=== PATIENT | male | born 1980 | race Caucasian/White ===

== ENCOUNTER 2022-04-25 20:10 | Emergency (ER) | payer BC, MEDICAID ==
[2022-04-25] MEDS ORDERED: Sodium Chloride 0.9% 1,000 ML IV ONE (21:07)
== END 2022-04-25 23:18 ==
LOC: JD.ED 20:10
DX: F10.229 Alcohol dependence with intoxication, unspecified (principal); Y90.1 Blood alcohol level of 20-39 mg/100 ml
CPT/HCPCS: 36415; 80307; 96360; 99283; J7030

== ENCOUNTER 2022-06-20 10:00 | Emergency (ER) | payer MEDICAID, BC | END 2022-06-20 12:02 | LOC: JD.ED 10:00 | DX: F10.10 Alcohol abuse, uncomplicated (principal); I10 Essential (primary) hypertension; Y90.0 Blood alcohol level of less than 20 mg/100 ml | CPT/HCPCS: 36415; 80307; 99284 ==

== ENCOUNTER 2023-11-07 23:59 | Emergency (ER) | payer BC ==
[2023-11-08] MEDS: LORazepam 2 MG/ML SDV IVPUSH ONE (01:06)
[2023-11-08] MEDS: Dextrose 5%-0.9% NaCl 1,000 ML IV SCH (01:12)
[2023-11-08 01:14] LABS: BASOPHILS ABSOLUTE AUTO 0.1 K/mm3 (0.0-0.2); BASOPHILS PERCENT AUTO 1.3 % (0.0-1.0); EOSINOPHILS PERCENT AUTO 0.5 % (0.0-6.0); HEMATOCRIT 45.9 % (42.0-52.0); HEMOGLOBIN 16.4 gm/dl (14.0-18.0); IMMATURE GRAN ABSOLUTE AUTO 0.04 K/mm3 (0.00-0.05); IMMATURE GRAN PERCENT AUTO 0.5 % (0.0-0.4); LYMPHOCYTES ABSOLUTE AUTO 1.9 K/mm3 (1.0-4.8); LYMPHOCYTES PERCENT AUTO 25.2 % (24.0-44.0); MEAN CORPUSCULAR HGB CONC 35.7 g/dl (32.0-36.0); MEAN PLATELET VOLUME 8.7 fl (9.4-12.4); MONOCYTES ABSOLUTE AUTO 0.6 K/mm3 (0.0-0.8); MONOCYTES PERCENT AUTO 8.3 % (0.0-8.0); NEUTROPHILS ABSOLUTE AUTO 4.9 K/mm3 (1.8-7.7); NEUTROPHILS PERCENT AUTO 64.2 % (41.0-71.0); PLATELET COUNT,PLT 308 K/mm3 (150-400); RED BLOOD CELL COUNT 4.83 M/mm3 (4.52-5.90); WHITE BLOOD CELL COUNT,WBC 7.61 K/mm3 (3.9-11.3)
[2023-11-08] MEDS: Metoclopramide 10 MG/2 ML SDV IVPUSH ONE (01:14)
[2023-11-08] MEDS: Thiamine 100 MG in Sodium Chloride 0.9% 100 ML IV ONE (01:18)
[2023-11-08 01:32] LABS: INR 1.03
[2023-11-08 01:34] LABS: PTT,PARTIAL THROMBOPLSTIN TIME 25.7 SECONDS (21.7-31.4)
[2023-11-08 01:54] LABS: A/G RATIO 1.1 (1-2); ALANINE AMINOTRANSFERASE,ALT 41 U/L (16-63); ALBUMIN 4.1 g/dl (3.4-5.0); ALKALINE PHOSPHATASE 81 U/L (46-116); ANION GAP 15.5 (5-15); ASPARTATE AMNIOTRANSFERASE,AST 24 U/L (15-37); BILIRUBIN TOTAL 0.6 mg/dL (0.2-1.0); BLOOD UREA NITROGEN,BUN 16 mg/dL (7-18); BUN/CREATININE RATIO 12.3 (14-18); CALCIUM 8.3 mg/dL (8.5-10.1); CARBON DIOXIDE,CO2 27 mEq/L (21-32); CHLORIDE,CL 103 mEq/L (98-107); CREATININE 1.3 mg/dL (0.7-1.3); EST CRCL DRUG DOSING (CG) 78.04 mL/min; ESTIMATED GFR 70 mL/min (>60); ETHANOL BLOOD MEDICAL 0.36 gm% (0.00); GLUCOSE RANDOM 150 mg/dL (70-99); LIPASE 38 U/L (16-77); MAGNESIUM 2.1 mg/dL (1.8-2.4); POTASSIUM,K 3.5 mEq/L (3.5-5.1); PROTEIN TOTAL,TP 7.7 g/dl (6.4-8.2); SODIUM,NA 142 mEq/L (136-145)
[2023-11-08] MEDS: Aluminum Hydroxide/Magnesium Hydroxide/Simethicone Susp 30 ML Cup PO ONE (02:00)
[2023-11-08 02:01] LABS: LACTIC ACID 2.6 mmol/L (0.4-2.0)
[2023-11-08 02:02] LABS: TROPONIN I HIGH SENSITIVITY < 4 pg/mL (<=76)
[2023-11-08] MEDS: Lactated Ringers 2,000 ML IV ONE (02:20)
== END 2023-11-08 10:28 | disposition home or self-care (01) ==
LOC: JD.ED 23:59
DX: F10.10 Alcohol abuse, uncomplicated (principal); I10 Essential (primary) hypertension
CPT/HCPCS: 36415; 80053; 80307; 82010; 83605; 83690; 83735; 84484; 85025; 85610; 85730; 96361; 96365; 96375; 99283; J2060; J2765; J3411; J3490; J7042; J7120

== ENCOUNTER 2023-11-08 21:58 | Emergency (ER) | payer BC ==
[2023-11-08 22:36] LABS: BASOPHILS ABSOLUTE AUTO 0.1 K/mm3 (0.0-0.2); BASOPHILS PERCENT AUTO 1.1 % (0.0-1.0); EOSINOPHILS PERCENT AUTO 0.3 % (0.0-6.0); HEMATOCRIT 43.6 % (42.0-52.0); HEMOGLOBIN 15.6 gm/dl (14.0-18.0); IMMATURE GRAN ABSOLUTE AUTO 0.03 K/mm3 (0.00-0.05); IMMATURE GRAN PERCENT AUTO 0.3 % (0.0-0.4); LYMPHOCYTES PERCENT AUTO 10.1 % (24.0-44.0); MEAN CORPUSCULAR HEMOGLOBIN 34.3 pg (28.0-32.0); MEAN CORPUSCULAR HGB CONC 35.8 g/dl (32.0-36.0); MEAN CORPUSCULAR VOLUME 95.8 fl (83.0-99.0); MEAN PLATELET VOLUME 8.8 fl (9.4-12.4); MONOCYTES PERCENT AUTO 10.5 % (0.0-8.0); NEUTROPHILS ABSOLUTE AUTO 7.4 K/mm3 (1.8-7.7); NEUTROPHILS PERCENT AUTO 77.7 % (41.0-71.0); PLATELET COUNT,PLT 280 K/mm3 (150-400); RED BLOOD CELL COUNT 4.55 M/mm3 (4.52-5.90); WHITE BLOOD CELL COUNT,WBC 9.49 K/mm3 (3.9-11.3)
[2023-11-08] MEDS: Ondansetron 4 MG/2 ML SDV IVPUSH ONE (22:37)
[2023-11-08] MEDS: Sodium Chloride 0.9% 10 ML Syringe FLUSH PRN (22:37)
[2023-11-08] MEDS: Sodium Chloride 0.9% 1,000 ML IV STA (22:37)
[2023-11-08] MEDS: LORazepam 2 MG/ML SDV IVPUSH ONE (22:37)
[2023-11-08 23:08] LABS: A/G RATIO 1.2 (1-2); ALBUMIN 4.1 g/dl (3.4-5.0); ANION GAP 15.3 (5-15); BUN/CREATININE RATIO 10.8 (14-18); CALCIUM 9.9 mg/dL (8.5-10.1); CREATININE 1.3 mg/dL (0.7-1.3); EST CRCL DRUG DOSING (CG) 78.04 mL/min; MAGNESIUM 1.4 mg/dL (1.8-2.4); POTASSIUM,K 3.3 mEq/L (3.5-5.1); PROTEIN TOTAL,TP 7.4 g/dl (6.4-8.2)
[2023-11-08 23:21] LABS: TSH 3.963 uIU/mL (0.358-3.74)
[2023-11-08] MEDS: Magnesium Oxide 400 MG Tab PO ONE (23:37)
[2023-11-09 00:42] LABS: AMPHETAMINES SCREEN, URINE NEGATIVE (CUTOFF=500); BARBITURATE SCREEN,URINE NEGATIVE (CUTOFF=200); BENZODIAZEPINES SCREEN,URINE NEGATIVE (CUTOFF=150); BUPRENORPHINE SCREEN,URINE NEGATIVE (CUTOFF=10); METHADONE SCREEN, URINE NEGATIVE (CUT0FF=200); METHAMPHETAMINES SCREEN, URINE NEGATIVE (CUTOFF=500); OXYCODONE SCREEN,URINE NEGATIVE (CUT0FF=100); THC SCREEN,URINE 20 NG/ML NEGATIVE (CUTOFF=50)
== END 2023-11-09 02:26 | disposition other institution (70) ==
LOC: JD.ED 21:58
DX: E03.8 Other specified hypothyroidism (principal); E83.42 Hypomagnesemia; F10.132 Alcohol abuse with withdrawal with perceptual disturbance; I10 Essential (primary) hypertension
CPT/HCPCS: 36415; 80053; 80143; 80179; 80306; 80307; 83735; 84443; 85025; 93005; 93010; 96374; 96375; 99284; 99284-25; A9270-GY; J2060; J2405; J3490; J7030

== ENCOUNTER 2023-12-05 23:24 | Emergency (ER) | payer SELFPAY ==
[2023-12-05] MEDS: Haloperidol Lactate 5 MG/ML SDV IVPUSH ONE (23:46)
[2023-12-05] MEDS: Sodium Chloride 0.9% 10 ML Syringe FLUSH PRN (23:46)
[2023-12-06 00:08] LABS: BASOPHILS ABSOLUTE AUTO 0.1 K/mm3 (0.0-0.2); BASOPHILS PERCENT AUTO 1.2 % (0.0-1.0); EOSINOPHILS ABSOLUTE AUTO 0.1 K/mm3 (0.0-0.4); EOSINOPHILS PERCENT AUTO 1.5 % (0.0-6.0); HEMATOCRIT 40.6 % (42.0-52.0); IMMATURE GRAN ABSOLUTE AUTO 0.05 K/mm3 (0.00-0.05); IMMATURE GRAN PERCENT AUTO 0.7 % (0.0-0.4); LYMPHOCYTES ABSOLUTE AUTO 1.5 K/mm3 (1.0-4.8); LYMPHOCYTES PERCENT AUTO 21.6 % (24.0-44.0); MEAN CORPUSCULAR HEMOGLOBIN 33.8 pg (28.0-32.0); MEAN CORPUSCULAR HGB CONC 34.5 g/dl (32.0-36.0); MEAN CORPUSCULAR VOLUME 98.1 fl (83.0-99.0); MEAN PLATELET VOLUME 9.2 fl (9.4-12.4); MONOCYTES ABSOLUTE AUTO 0.4 K/mm3 (0.0-0.8); NEUTROPHILS ABSOLUTE AUTO 4.7 K/mm3 (1.8-7.7); PLATELET COUNT,PLT 256 K/mm3 (150-400); RED BLOOD CELL COUNT 4.14 M/mm3 (4.52-5.90); WHITE BLOOD CELL COUNT,WBC 6.79 K/mm3 (3.9-11.3)
[2023-12-06 00:35] LABS: A/G RATIO 1.2 (1-2); ALBUMIN 3.4 g/dl (3.4-5.0); ANION GAP 13.6 (5-15); BILIRUBIN TOTAL 0.4 mg/dL (0.2-1.0); BUN/CREATININE RATIO 15.5 (14-18); CREATININE 1.1 mg/dL (0.7-1.3); EST CRCL DRUG DOSING (CG) 89.41 mL/min; ETHANOL BLOOD MEDICAL 0.29 gm% (0.00); MAGNESIUM 1.9 mg/dL (1.8-2.4); POTASSIUM,K 3.6 mEq/L (3.5-5.1); PROTEIN TOTAL,TP 6.3 g/dl (6.4-8.2)
[2023-12-06] MEDS: Sodium Chloride 0.9% 1,000 ML IV ONE (00:46)
[2023-12-06] MEDS: Diphtheria,Pertussis(Acell),Tetanus Vaccine 0.5 ML Syringe IM ONE (00:47)
[2023-12-06] MEDS: LORazepam 2 MG/ML SDV IVPUSH ONE (01:47)
[2023-12-06 02:30] LABS: APPEARANCE,URINE CLEAR (Clear); BILIRUBIN,URINE NEGATIVE (Negative); COLOR,URINE LIGHT YELLOW (Yellow); GLUCOSE,URINE NEGATIVE (Negative); KETONES,URINE NEGATIVE (Negative); LEUKOCYTE ESTERASE,URINE NEGATIVE (Negative); NITRITE,URINE NEGATIVE (Negative); OCCULT BLOOD,URINE TRACE-LYSED (Negative); PROTEIN,URINE NEGATIVE (Negative); UROBILINOGEN,URINE 0.2 (0.2-1.0)
[2023-12-06 02:58] LABS: BACTERIA,URINE NOT SEEN /hpf (FEW); EPITHELIAL CELLS,URINE 0-5 /hpf (0-5); RBC,URINE 0-5 /hpf (0-5); WBC,URINE 0-5 /hpf (0-5)
[2023-12-06 02:59] LABS: MUCUS,URINE NOT SEEN /hpf (FEW)
[2023-12-06 03:06] LABS: AMPHETAMINES SCREEN, URINE NEGATIVE (CUTOFF=500); BARBITURATE SCREEN,URINE NEGATIVE (CUTOFF=200); BENZODIAZEPINES SCREEN,URINE PRESUMPTIVE POSITIVE (CUTOFF=150); BUPRENORPHINE SCREEN,URINE NEGATIVE (CUTOFF=10); METHADONE SCREEN, URINE NEGATIVE (CUT0FF=200); METHAMPHETAMINES SCREEN, URINE NEGATIVE (CUTOFF=500); OXYCODONE SCREEN,URINE NEGATIVE (CUT0FF=100); THC SCREEN,URINE 20 NG/ML NEGATIVE (CUTOFF=50)
== END 2023-12-06 08:43 | disposition left against medical advice (07) ==
LOC: JD.ED 23:24
DX: S02.2XXA Fracture of nasal bones, initial encounter for closed fracture (principal); F10.229 Alcohol dependence with intoxication, unspecified; I10 Essential (primary) hypertension; Y90.1 Blood alcohol level of 20-39 mg/100 ml; Z79.899 Other long term (current) drug therapy; Z23 Encounter for immunization; Y04.0XXA Assault by unarmed brawl or fight, initial encounter; Z53.29 Procedure and treatment not carried out because of patient's decision for other reasons
CPT/HCPCS: 36415; 70450; 70450-26; 80053; 80306; 80307; 81001; 83735; 85025; 90471; 90715; 96374; 96375; 99284-25; J1630; J2060; J3490; J7030